=== PATIENT | female | born 1965 ===

== ENCOUNTER → 2018-12-10 21:16 | Outpatient (REF) | payer OTHER, SELFPAY ==
[2018-12-12 16:39] LABS: Progesterone < 0.5 ng/mL
[2018-12-14 16:39] LABS: Estrogen 290.5 pg/mL
[2018-12-17 12:50] LABS: Testosterone, Total 17.2; Testosterone,Free 2.2
== END ==
LOC: LAB 21:16
PROVIDERS: Visit Provider Family Medicine
DX: N95.2 Postmenopausal atrophic vaginitis (principal); Z13.89 Encounter for screening for other disorder
CPT/HCPCS: 36415; 82672; 84144; 84402; 84403